=== PATIENT | female | born 1975 | race Caucasian/White ===

== ENCOUNTER 2018-04-21 17:24 | Emergency (ER) | payer OTHER ==
[2018-04-21 18:31] VITALS: BP 111/57
[2018-04-21] MEDS ORDERED: OXYCODONE-ACETAMINOPHEN 5-325 MG TABLET PO ONE (18:46)
--- NOTE | 2018-04-21 19:14 | RADIOLOGY REPORT (SQ) ---
EXAM DESCRIPTION: ELBOW RIGHT OVER 2 VIEWS COMPLETED DATE/TIME: 04/21/2018 7:03 pm REASON FOR STUDY: fall, pain COMPARISON: None. NUMBER OF VIEWS: Four views. TECHNIQUE: AP, lateral, and both oblique radiographic images acquired of the right elbow. LIMITATIONS: None. FINDINGS: MINERALIZATION: Normal. BONES: There is a comminuted fracture of the radial head and neck. JOINT: No effusion. SOFT TISSUES: No soft tissue swelling. No foreign body. OTHER: No other significant finding. IMPRESSION: Fracture of the radial head and neck. TECHNICAL DOCUMENTATION: JOB ID: [id number] [employer]- All Rights Reserved Reading location - IP/workstation name: [email or web address]
--- NOTE | 2018-04-21 19:28 | ER Document Report ---
HPI - HPI Patient complains to provider of: Right arm pain Pain Level: 5 Context: Patient is a 42-year-old healthy female complaining of pain to her right arm 1 day. 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 Patient felt and heard a pop near her elbow. Acute pain. Patient fell on her left knee which has an abrasion. Patient denies hitting her head. No neck or back pain. Associated Symptoms: None Exacerbated by: Movement Relieved by: Denies Similar symptoms previously: No Recently seen / treated by doctor: No - ROS Systems Reviewed and Negative: Yes All other systems reviewed and negative - REPRODUCTIVE LMP: 03/26/18 - MUSCULOSKELETAL Musculoskeletal: REPORTS: Extremity pain Past Medical History - General Information source: Patient - Social History Smoking Status: Current Every Day Smoker Frequency of alcohol use: Occasional Drug Abuse: None Lives with: Family Family History: Reviewed & Not Pertinent Patient has suicidal ideation: No Patient has homicidal ideation: No Renal/ Medical History: Denies: Hx Peritoneal Dialysis Vertical Provider Document - CONSTITUTIONAL Agree With Documented VS: Yes Exam Limitations: No Limitations - INFECTION CONTROL TRAVEL OUTSIDE OF THE [place] IN LAST 30 DAYS: No - HEENT HEENT: Atraumatic, PERRLA - NECK Neck: Normal Inspection, Supple - RESPIRATORY Respiratory: Breath Sounds Normal, No Respiratory Distress - BACK Back: Normal Inspection - MUSCULOSKELETAL/EXTREMETIES Musculoskeletal/Extremeties: Tender - Focal tenderness to proximal radial styloid. Patient unable to fully extend right elbow. Distal sensory motor circulation intact - NEURO Level of Consciousness: Awake, Alert, Appropriate - DERM Integumentary: Warm, Dry, Rash - Positive abrasion to left knee Course - Re-evaluation Re-evalutation: 04/21/18 19:26 X-ray showing positive fracture of right radial styloid. These results reviewed with the patient. LOW risk for OPEN FRACTURE, COMPARTMENT SYNDROME, DEEP VENOUS THROMBOSIS, ACUTE TENDON RUPTURE, or NEUROVASCULAR INJURY thus I consider the discharge disposition reasonable. I have reevaluated this patient multiple times and no significant life threatening changes are noted. The patient and I have discussed the diagnosis and risks, and we agree with discharging home to closely follow-up with their primary doctor or the referral orthopedist with the understanding that symptoms and presentations can change. We also discussed returning to the Emergency Department immediately if new or worsening symptoms occur. We have discussed the symptoms which are most concerning (e.g., changing or worsening pain, numbness, weakness) that necessitate immediate return - Vital Signs Vital signs: Temp Pulse Resp BP Pulse Ox 98.3 F 87 16 111/57 L 97 04/21/18 17:38 04/21/18 17:38 04/21/18 17:38 04/21/18 18:29 04/21/18 17:38 Discharge - Discharge Clinical Impression: Radial head fracture Qualifiers: Encounter type: initial encounter Fracture type: closed Fracture alignment: displaced Laterality: right Qualified Code(s): S52.121A - Displaced fracture of head of right radius, initial encounter for closed fracture Condition: Stable Disposition: HOME, SELF-CARE Instructions: Fracture ([facility]), Splint Pending Casting ([facility]), Sling to be Used ( [facility]), Oral Narcotic Medication ([facility]), Ice & Elevation ([facility]) Additional Instructions: We have a fracture of your radial styloid. You have been splinted for comfort and protection. Please follow-up with orthopedist tomorrow for further evaluation and treatment Contact information is provided below: [facility] ([facility]) Address: [address] [place] [address], [place] [address] Prescriptions: Oxycodone HCl/Acetaminophen [Percocet 5-325 mg Tablet] 1 - 2 tab PO ASDIR PRN # 25 tablet PRN Reason: Referrals: JORDAN ESTRADA MD [ACTIVE STAFF] - Follow up as needed
== END 2018-04-21 19:38 | disposition home or self-care (01) ==
LOC: ER 17:24
DX: S52.121A Displaced fracture of head of right radius, initial encounter for closed fracture (principal); S80.212A Abrasion, left knee, initial encounter; M79.601 Pain in right arm; W19.XXXA Unspecified fall, initial encounter; F17.200 Nicotine dependence, unspecified, uncomplicated
CPT/HCPCS: 99283

== ENCOUNTER 2018-04-30 10:07 | Day surgery (SDC) | payer OTHER ==
[2018-04-27 11:28] LABS: ABSOLUTE EOSINOPHILS # (AUTO) 0.1 10^3/uL (0.0-0.6); ABSOLUTE LYMPHOCYTES (AUTO) 2.1 10^3/uL (0.5-4.7); ABSOLUTE MONOCYTES (AUTO) 0.6 10^3/uL (0.1-1.4); ABSOLUTE NEUT (AUTO) 6.9 10^3/uL (1.7-8.2); BASOPHILS % (AUTO) 0.3 % (0-2); EOSINOPHILS % (AUTO) 0.7 % (0-6); LYMPHOCYTES % (AUTO) 21.4 % (13-45); MEAN CORPUSCULAR HEMOGLOBIN 33.6 pg (27.0-33.4); MEAN CORPUSCULAR HGB CONC 34.9 g/dL (32.0-36.0); MEAN CORPUSCULAR VOLUME 96 fl (80-97); MONOCYTES % (AUTO) 6.3 % (3-13); PLATELET COUNT 247 10^3/uL (150-450); RED BLOOD COUNT 4.78 10^6/uL (3.72-5.28); RED CELL DISTRIBUTION WIDTH 12.4 % (11.5-14.0); SEGMENTED NEUTROPHILS % (AUTO) 71.3 % (42-78); TOTAL CELLS COUNTED % (AUTO) 100 %; WHITE BLOOD COUNT 9.7 10^3/uL (4.0-10.5)
[2018-04-27 11:41] LABS: APPEARANCE,URINE TURBID; BILIRUBIN,URINE NEGATIVE (NEGATIVE); COLOR,URINE DARK YELLOW; GLUCOSE, URINE NEGATIVE (NEGATIVE); KETONES,URINE NEGATIVE (NEGATIVE); LEUKOCYTE ESTERASE,URINE MODERATE (NEGATIVE); NITRITE,URINE NEGATIVE (NEGATIVE); PROTEIN,URINE 30 mg/dL (NEGATIVE); URINE SPECIFIC GRAVITY 1.021
[2018-04-27 11:44] LABS: ANION GAP 9 (5-19); BLOOD UREA NITROGEN 15 mg/dL (7-20); CALCIUM 9.1 mg/dL (8.4-10.2); CARBON DIOXIDE 28 mmol/L (22-30); CHLORIDE 107 mmol/L (98-107); GLUCOSE 89 mg/dL (75-110); POTASSIUM 4.5 mmol/L (3.6-5.0); SODIUM 144.2 mmol/L (137-145)
--- NOTE | 2018-04-27 13:26 | EKG REPORT ---
SEVERITY:- NORMAL ECG - SINUS RHYTHM : Confirmed by: Dain Jeffries MD 27-Apr-2018 13:25:51
[~2018-04-30 10:07] MED LIST: BUPIVACAINE HCL 0.5 % INJ/PF 30 ML SDV ONE; CLINDAMYCIN 600 MG/D5W RTU 600 MG/50 ML RTUPB IV PRN; LACTATED RINGERS 1000 ML IV PRN; LIDOCAINE 0.5% INJ-PF (5 MG/ML) 50 ML SDV SUBCUT PRN
[2018-04-30] MEDS ORDERED: FAMOTIDINE INJ/PF 20 MG/2 ML SDV IV ONE (11:10)
[2018-04-30] MEDS ORDERED: MIDAZOLAM 2 MG/2 ML INJ ONE ×2 (11:10→11:44)
[2018-04-30] MEDS ORDERED: ALBUTEROL SULFATE 0.083% NEB 2.5 MG/3 ML AMPUL NEB ONE (11:22)
[2018-04-30] MEDS ORDERED: ACETAMINOPHEN 1,000 MG/100 ML RTUPB IV ONE (11:44)
[2018-04-30] MEDS ORDERED: PROPOFOL INJ 200 MG/20 ML VIAL IV ONE (11:44)
[2018-04-30] MEDS ORDERED: FENTANYL CITRATE INJ/PF 250 MCG/5 ML AMPULE ONE (11:44)
[2018-04-30] MEDS ORDERED: HYDROMORPHONE HCL INJ/PF 2 MG/ML AMPULE ONE (11:44)
[2018-04-30] MEDS ORDERED: OXYCODONE-ACETAMINOPHEN 5-325 MG TABLET PO PRN ×3 (13:29→14:44)
[2018-04-30] MEDS ORDERED: MORPHINE SULFATE 10 MG/ML INJ IV PRN (13:29)
[2018-04-30] MEDS ORDERED: PROMETHAZINE HCL INJ 25 MG/1 ML VIAL IV PRN ×2 (13:29)
[2018-04-30] MEDS ORDERED: FENTANYL CITRATE INJ/PF 100 MCG/2 ML AMPUL IV PRN ×3 (13:29)
[2018-04-30] MEDS ORDERED: MEPERIDINE HCL/PF INJ 25 MG/1 ML DISP.SYRIN IV PRN (13:29)
[2018-04-30] MEDS ORDERED: DIPHENHYDRAMINE HCL 50 MG/ML VIAL IV PRN (13:29)
[2018-04-30] MEDS ORDERED: FENTANYL CITRATE INJ/PF 100 MCG/2 ML AMPUL ONE (14:36)
[2018-04-30] MEDS ORDERED: HYDROMORPHONE HCL INJ/PF 2 MG/ML AMPULE IV PRN (14:44)
--- NOTE | 2018-04-30 14:44 | Discharge Summary ---
Discharge Summary (SDC) - Discharge Final Diagnosis: Right comminuted radial head fracture, lateral ulnar collateral ligament tear Date of Surgery: 04/30/18 Discharge Date: 04/30/18 Condition: Good Treatment or Instructions: Schedule Follow Up w/ Dr. Ghassan Mac @ [facility] for Surgery to be seen in 10-14 days or as scheduled [place]: [place]: [place]: Ice and elevate Keep splint clean/dry/intact. If your fingers become numb please unwrap the Shane wrap but leave the splint in place, if the sensation does not return within 30 minutes please return to the emergency department. May begin finger range of motion attempting to make full fist. Please use ibuprofen (Motrin or Advil) 600-800 mg every 8 hours as needed for pain or fever DO NOT TAKE w/ TORADOL may use once TORADOL complete. You may also use acetaminophen (Tylenol) 1000 mg every 4-6 hours as needed for pain or fever. Please be aware that many medications contain acetaminophen, do not exceed a total of 1000 mg of acetaminophen every 6 hours. If ibuprofen and acetaminophen are not sufficient for your pain you may take the Percocet/[place]. Please be aware that the Percocet/[place] does contain Tylenol. Stool softener of choice when on pain medication. Prescriptions: Ketorolac Tromethamine [Toradol 10 mg Tablet] 10 mg PO Q8HP PRN #12 tablet PRN Reason: Oxycodone HCl/Acetaminophen [Percocet 5-325 mg Tablet] 1 - 2 tab PO ASDIR PRN # 35 tablet PRN Reason: Discharge Diet: As Tolerated Respiratory Treatments at Home: Deep Breathing/Coughing, Incentive Spirometer Discharge Activity: No Lifting Over 10 Pounds, No Lifting/Push/Pulling Report the Following to Your Physician Immediately: Fever over 101 Degrees, Unusual Bleeding, Redness, Swelling, Warmth, Increased Soreness
[2018-04-30] MEDS ORDERED: ONDANSETRON 4 MG TAB.RAPDIS ONE (14:46)
[2018-04-30] MEDS ORDERED: LIDOCAINE 2%/EPINEPHRINE INJ 20 ML VIAL ONE (14:47)
[2018-04-30] MEDS ORDERED: LIDOCAINE 2% INJ (20 MG/ML) 20 ML MDV ONE (14:48)
[2018-04-30] MEDS ORDERED: ROPIVACAINE HCL 0.5% INJ/PF (5 MG/1 ML) 30 ML SDV ONE ×2 (14:48→14:55)
--- NOTE | 2018-04-30 16:35 | RADIOLOGY REPORT (SQ) ---
EXAM DESCRIPTION: NO CHG FLUORO; ELBOW RIGHT AP/LAT COMPLETED DATE/TIME: 04/30/2018 3:31 pm REASON FOR STUDY: ORIF RIGHT RADIAL HEAD ARTHROPLASTY COMPARISON: None. FLUOROSCOPY TIME: 0.6 minutes 4 Images saved to PACS LIMITATIONS: None. PROCEDURE: Arthroplasty of the right radial head. FINDINGS: Arthroplasty of the right radial head. IMPRESSION: Arthroplasty of the right radial head. Refer to operative note for further information. COMMENT: PQRS 6045F: Fluoroscopy time of the procedure is documented in the report. TECHNICAL DOCUMENTATION: JOB ID: [id number] [employer]- All Rights Reserved Reading location - IP/workstation name: [email or web address]
--- NOTE | 2018-04-30 16:35 | RADIOLOGY REPORT (SQ) ---
EXAM DESCRIPTION: NO CHG FLUORO; ELBOW RIGHT AP/LAT COMPLETED DATE/TIME: 04/30/2018 3:31 pm REASON FOR STUDY: ORIF RIGHT RADIAL HEAD ARTHROPLASTY COMPARISON: None. FLUOROSCOPY TIME: 0.6 minutes 4 Images saved to PACS LIMITATIONS: None. PROCEDURE: Arthroplasty of the right radial head. FINDINGS: Arthroplasty of the right radial head. IMPRESSION: Arthroplasty of the right radial head. Refer to operative note for further information. COMMENT: PQRS 6045F: Fluoroscopy time of the procedure is documented in the report. TECHNICAL DOCUMENTATION: JOB ID: [id number] [employer]- All Rights Reserved Reading location - IP/workstation name: [email or web address]
[2018-04-30] MEDS ORDERED: SUCCINYLCHOLINE CHLORIDE INJ 200 MG/10 ML VIAL ONE (16:47)
[2018-04-30 16:58] VITALS: BP 115/58
--- NOTE | 2018-04-30 18:14 | Operative Report ---
Operative Report DATE OF SURGERY: 04/30/18 PREOPERATIVE DIAGNOSIS: Right comminuted intra-articular radial head fracture POSTOPERATIVE DIAGNOSIS: Above plus lateral ulnar collateral ligament tear OPERATION: 1. Radial head arthroplasty right elbow. 2. Lateral ulnar collateral ligament repair right elbow SURGEON: JORDAN ONEIL ANESTHESIA: GA COMPLICATIONS: None ESTIMATED BLOOD LOSS: Minimal PROCEDURE: Indication for above procedure: 42-year-old female who sustained a fall to her right elbow resulting in a injury. She was seen at the emergency room where x-rays demonstrate comminuted radial head fracture. At that point she was sent to ri for further evaluation and treatment. We discussed treatment options including operative versus nonoperative intervention along with risks and benefits. At that point decision was made to proceed with operative treatment. Procedure In Detail: Patient was seen and evaluated in the preoperative holding area. The RIGHT upper extremity was initialized and marked. Patient received 600 mg of clindamycin IV for bacterial prophylaxis. Patient was taken back to the operative room where transferred to the operative table and placed under general anesthesia. A surgical team debriefing was performed ensuring all instrumentation was available, the surgical procedure was discussed with possible concerns reviewed. The upper extremity was prepped with ChloraPrep and draped in a sterile fashion. A nonsterile tourniquet was placed around the right upper extremity. A timeout was done identifying correct patient, procedure and extremity everyone in attendance agree with this and verbalized no concerns. The extremity was exsanguinated the tourniquet was inflated to 250 mmHg. Oblique skin incision was made from the lateral epicondyle to 5 cm distal to the olecranon tip. Kochers interval was identified and split. Blunt dissection was performed through the extensor mechanism which was split in line with the skin incision. Disruption of the lateral ulnar collateral ligament was identified exposing the radiocapitellar joint. There is significant comminution of the radial head at that point decision was made to proceed with radial head arthroplasty. Fragments of the radial head removed including any remaining loose bodies. The wound was copiously irrigated with normal saline. Identification of the coronoid through this defect demonstrated partial disruption of the anterior capsule with intact coronoid. The supinator was carefully elevated along the neck of the radius while maintaining full pronation of the forearm to protect the posterior interosseous nerve. Once this was isolated sagittal saw was used to freshen up the distal aspect. I then proceeded with trialing for the Acumed radial head implant and reamed to a size 9 mm. A size 9 mm 0 was first child which did not provide adequate stability or height. I then trialed subsequently 2, 4 and 6 mm neck length I felt the 6 mm neck length overstuff the radiocapitellar joint. Thus the 4 mm was once again trialed a to provide stability of the radiocapitellar joint under direct visualization it was approximately 1 mm proximal to the proximal radial ulnar joint. Thus the size 9 x 4 mm radial head arthroplasty was chosen. The wound was then copiously irrigated with normal saline. On the back table the arthroplasty was inset. I then implanted arthroplasty maintaining neutral position during implantation. Good fit was obtained. Patient had full pronation supination without impingement. There is no evidence of instability from full flexion to full extension. C-arm fluoroscopy was obtained confirming adequate alignment without evidence of increased tight in comparison to the proximal radial ulnar joint. I then proceeded with lateral ulnar collateral ligament repair. A Arthrex 3 x 14.5 mm suture tack anchor was placed at the isometric point of the capitellum which was confirmed with C arm fluoroscopy. A running locking Krakw suture was proceeded from proximal to distal and distal to proximal and secured with the elbow in 90 of flexion and full pronation. I then repaired the extensor mechanism back to the lateral epicondyle once again with a running Krakw suture. This was then reinforced with interrupted #2 FiberWire suture. C-arm fluoroscopy was once again obtained demonstrating stability of the radiocapitellar joint no evidence of ulnohumeral subluxation or dislocation. The tourniquet was then deflated. Any bleeding was controlled with bipolar cautery into the wound was dry. Subcutaneous tissues were closed with interrupted 3-0 Vicryl suture. Skin was closed with a running subcuticular 4-0 Monocryl reinforced with Dermabond and Steri-Strips. 20 cc of 0.5% Marcaine without epinephrine was injected for postoperative pain control. Patient was placed in a posterior splint maintaining 90 of elbow flexion and 40 of pronation. Sponge counts, instrument counts, needle counts counts were correct. Patient was then awoken from anesthesia. Transferred from the operating room table to the operating room stretcher. There was no intraoperative complications patient tolerated procedure well stable to PACU. Postoperative plan: Patient will begin occupational therapy 3 weeks postoperatively beginning elbow range of motion as per lateral ulnar collateral ligament protocol with goal of achieving full range of motion by 6 weeks postoperatively. Patient will be fitted for a hinged elbow brace at postoperative follow-up. Will obtain radiographs of the right elbow at follow-up.
== END 2018-04-30 17:00 | disposition home or self-care (01) ==
LOC: OROUT 10:07
PROVIDERS: ATTEND Orthopaedic Surgery
PROC: 0RRL0JZ Replacement of Right Elbow Joint with Synthetic Substitute, Open Approach (ICD-10-PCS; 2018-04-30)
PROC: 0MQ30ZZ Repair Right Elbow Bursa and Ligament, Open Approach (ICD-10-PCS; principal; 2018-04-30 12:00)
DX: S52.121A Displaced fracture of head of right radius, initial encounter for closed fracture (principal); S53.441A Ulnar collateral ligament sprain of right elbow, initial encounter; F17.200 Nicotine dependence, unspecified, uncomplicated
CPT/HCPCS: 93005; 36415; 85025; 81025; 80048; 81001; 73070; 93010; 94640; 24343; 24366; J2795; J2250; J3490 ×3; S0119; J3010 ×2; J1170; J0330; J2704; S0028; J0131; 01740; C1713

== ENCOUNTER 2018-05-01 03:18 | Emergency (ER) | payer OTHER ==
[2018-05-01] MEDS ORDERED: HYDROMORPHONE HCL INJ/PF 2 MG/ML AMPULE IM ONE ×3 (04:29→06:00)
--- NOTE | 2018-05-01 04:34 | ER Document Report ---
ED Extremity Problem, Upper - General Chief Complaint: Arm Pain Stated Complaint: ELBOW PAIN Time Seen by Provider: 05/01/18 04:22 Mode of Arrival: Ambulatory Information source: Patient Notes: Patient is a 42-year-old female who presents with chief complaint of right elbow pain status post radial head replacement done yesterday 04/30/18. Patient reports that she has been taking Percocet 2 tablets p.o. every 4 hours as well as Toradol 10 mg p.o. every 8 hours, patient reports that the pain started getting out of control around midnight. Patient reports that she called her orthopedic group and spoke with Dr. Bell who advised that patient present to the emergency department if she could not get her pain under control. Patient further reports that they did a nerve block however she reports that this wore off at about 1130 last night. TRAVEL OUTSIDE OF THE U.S. IN LAST 30 DAYS: No - Related Data Allergies/Adverse Reactions: cephalexin [From Keflex] Allergy (Verified 04/27/18 13:55) latex Allergy (Verified 04/27/18 13:55) Past Medical History - General Information source: Patient - Social History Smoking Status: Never Smoker Frequency of alcohol use: None Drug Abuse: None Family History: Reviewed & Not Pertinent - Medical History Medical History: Negative - Past Medical History Cardiac Medical History: Denies: Hx Coronary Artery Disease, Hx Heart Attack, Hx Hypertension Pulmonary Medical History: Denies: Hx Asthma, Hx Bronchitis, Hx COPD, Hx Pneumonia Neurological Medical History: Denies: Hx Cerebrovascular Accident, Hx Seizures Renal/ Medical History: Denies: Hx Peritoneal Dialysis Musculoskeltal Medical History: Denies Hx Arthritis Past Surgical History: Reports: Hx Orthopedic Surgery - Right elbow - Immunizations Hx Diphtheria, Pertussis, Tetanus Vaccination: Yes Review of Systems - Review of Systems Constitutional: No symptoms reported EENT: No symptoms reported Cardiovascular: No symptoms reported Respiratory: No symptoms reported Gastrointestinal: No symptoms reported Genitourinary: No symptoms reported Female Genitourinary: No symptoms reported Musculoskeletal: See HPI Skin: No symptoms reported Hematologic/Lymphatic: No symptoms reported Neurological/Psychological: No symptoms reported Physical Exam - Vital signs Vitals: Temp Pulse Resp BP Pulse Ox 98.2 F 74 16 116/69 98 05/01/18 07:21 05/01/18 07:21 05/01/18 07:21 05/01/18 07:21 05/01/18 07:21 - Notes Notes: PHYSICAL EXAMINATION: GENERAL: Well-appearing, well-nourished and in no acute distress. HEAD: Atraumatic, normocephalic. EYES: Pupils equal round and reactive to light, extraocular movements intact, conjunctiva are normal. ENT: Nares patent, oropharynx clear without exudates. Moist mucous membranes. NECK: Normal range of motion, supple without lymphadenopathy LUNGS: Breath sounds clear to auscultation bilaterally and equal. No wheezes rales or rhonchi. HEART: Regular rate and rhythm without murmurs ABDOMEN: Soft, nontender, nondistended abdomen. No guarding, no rebound. No masses appreciated. Female : deferred Musculoskeletal: Normal range of motion, no pitting or edema. No cyanosis. Sahne wraps and large bulky dressing in place to right arm. Patient does have cap refill less than 3 seconds and positive motor and sensation distal to elbow. NEUROLOGICAL: Cranial nerves grossly intact. Normal speech, normal gait. Normal sensory, motor exams PSYCH: Normal mood, normal affect. SKIN: Warm, Dry, normal turgor, no rashes or lesions noted. Course - Re-evaluation Re-evalutation: 42-year-old female presents with postsurgical pain after having a right elbow replacement done yesterday here at [facility]. Patient denies any new trauma to the area, patient reports she has been wearing her sling as directed until the nerve block wore off. Patient reports she has been taking her pain medications as directed however patient reports that the pain is severe and unable to be controlled. X-ray will be performed to check alignment of new prosthetic elbow in comparison with fluoroscopy images from surgery. Patient will be given Dilaudid intramuscularly to try to achieve more adequate pain control. Patient is agreeable to this plan. 05/01/18 06:00 right elbow x-ray is unremarkable for any acute changes. Patient reports a very minimal relief of pain after the Dilaudid IM injection. Called and spoke with orthopedic on-call, Dr. Bell who advises that he will come in and see the patient. Assisted patient into a position of comfort, ordered an additional Dilaudid [address] Bell. Ice packs placed around splint near surgical site. After Dr. Bell's evaluation, splint was removed by Dr. Bell. Patient did experience fairly immediate pain relief. Spoke with Dr. Bell short while after the splint was removed, patient still reports relief of her pain. Patient will be discharged home in stable condition with plans to follow-up with Dr. Oneil in the office this week. - Vital Signs Vital signs: Temp Pulse Resp BP Pulse Ox 98.2 F 74 16 116/69 98 05/01/18 07:21 05/01/18 07:21 05/01/18 07:21 05/01/18 07:21 05/01/18 07:21 Discharge - Discharge Clinical Impression: Post-op pain, Right arm pain Condition: Stable Disposition: HOME, SELF-CARE Additional Instructions: Please take all medications as prescribed by your surgeon. Please keep your follow-up appointment that you have scheduled with Dr. borges for next week. Please return to the emergency department if you develop any acute complaints. Referrals: JORDAN ONEIL, [ACTIVE STAFF] - Follow up as needed
--- NOTE | 2018-05-01 05:39 | RADIOLOGY REPORT (SQ) ---
EXAM DESCRIPTION: XR ELBOW 3 VIEWS COMPLETED DATE/TME: 05/01/2018 04:24 CLINICAL HISTORY: 42 years, Female, pain s/p surgery 04/30/18 COMPARISON: None. NUMBER OF VIEWS: 4 LIMITATIONS: None. FINDINGS: Arthroplasty of the right radial head without evidence of metal fracture or loosening. Small right elbow effusion. Moderate soft tissue swelling and emphysema of the posterior soft tissues. Splint. IMPRESSION: Soft tissue swelling/emphysema. Small right elbow joint effusion. Right radial head arthroplasty.
[2018-05-01] MEDS ORDERED: HYDROMORPHONE HCL INJ/PF 2 MG/ML AMPULE IV ONE (06:00)
[2018-05-01 07:21] VITALS: BP 116/69
== END 2018-05-01 07:25 | disposition home or self-care (01) ==
LOC: ER 03:18
DX: M79.621 Pain in right upper arm (principal); G89.18 Other acute postprocedural pain
CPT/HCPCS: 99283; 96372; 73080; J1170

== ENCOUNTER → 2018-08-24 | Outpatient (CLI) | payer OTHER ==
[2018-08-24 11:34] LABS: ABSOLUTE BASOPHILS # (AUTO) 0.1 10^3/uL (0.0-0.2); ABSOLUTE EOSINOPHILS # (AUTO) 0.1 10^3/uL (0.0-0.6); ABSOLUTE MONOCYTES (AUTO) 0.6 10^3/uL (0.1-1.4); ABSOLUTE NEUT (AUTO) 6.8 10^3/uL (1.7-8.2); BASOPHILS % (AUTO) 0.5 % (0-2); EOSINOPHILS % (AUTO) 0.9 % (0-6); HEMATOCRIT 44.7 % (36.0-47.0); HEMOGLOBIN 15.4 g/dL (12.0-15.5); LYMPHOCYTES % (AUTO) 28.5 % (13-45); MEAN CORPUSCULAR HEMOGLOBIN 33.2 pg (27.0-33.4); MEAN CORPUSCULAR HGB CONC 34.4 g/dL (32.0-36.0); MEAN CORPUSCULAR VOLUME 97 fl (80-97); MONOCYTES % (AUTO) 5.5 % (3-13); PLATELET COUNT 242 10^3/uL (150-450); RED BLOOD COUNT 4.64 10^6/uL (3.72-5.28); RED CELL DISTRIBUTION WIDTH 12.8 % (11.5-14.0); SEGMENTED NEUTROPHILS % (AUTO) 64.6 % (42-78); TOTAL CELLS COUNTED % (AUTO) 100 %; WHITE BLOOD COUNT 10.5 10^3/uL (4.0-10.5)
--- NOTE | 2018-08-24 11:38 | RADIOLOGY REPORT (SQ) ---
EXAM DESCRIPTION: CHEST PA/LATERAL COMPLETED DATE/TIME: 08/24/2018 10:50 am REASON FOR STUDY: PRE-OP COMPARISON: None. EXAM PARAMETERS: NUMBER OF VIEWS: two views TECHNIQUE: Digital Frontal and Lateral radiographic views of the chest acquired. RADIATION DOSE: NA LIMITATIONS: none FINDINGS: LUNGS AND PLEURA: No opacities, masses or pneumothorax. No pleural effusion. MEDIASTINUM AND HILAR STRUCTURES: No masses or contour abnormalities. HEART AND VASCULAR STRUCTURES: Heart normal size. No evidence for failure. BONES: No acute findings. HARDWARE: None in the chest. OTHER: No other significant finding. IMPRESSION: NO SIGNIFICANT RADIOGRAPHIC FINDING IN THE CHEST. TECHNICAL DOCUMENTATION: JOB ID: [id number] [employer]- All Rights Reserved Reading location - IP/workstation name: [email or web address]
[2018-08-24 12:04] LABS: ANION GAP 9 (5-19); BLOOD UREA NITROGEN 15 mg/dL (7-20); CALCIUM 9.4 mg/dL (8.4-10.2); CARBON DIOXIDE 29 mmol/L (22-30); CHLORIDE 105 mmol/L (98-107); GLUCOSE 86 mg/dL (75-110); POTASSIUM 4.5 mmol/L (3.6-5.0)
--- NOTE | 2018-08-25 08:24 | EKG REPORT ---
SEVERITY:- NORMAL ECG - SINUS RHYTHM : Confirmed by: Unique Mishra MD 25-Aug-2018 08:23:28
== END ==
LOC: OD 10:18
PROVIDERS: ATTEND Orthopaedic Surgery
DX: Z01.818 Encounter for other preprocedural examination (principal)
CPT/HCPCS: 36415; 71046; 80048; 85025; 93005; 93010

== ENCOUNTER → 2019-04-01 | Day surgery (SDC) | payer OTHER ==
--- NOTE | 2019-04-01 14:16 | RADIOLOGY REPORT (SQ) ---
EXAM DESCRIPTION: CT RT UPPER EXTREMITY WITH COMPLETED DATE/TIME: 04/01/2019 1:43 pm REASON FOR STUDY: S53.441S ULNAR COLLATERAL LIGAMENT SPRAIN OF RIGHT ELBOW, SEQUELA S53.441S ULNAR COLLATERAL LIGAMENT SPRAIN OF RIGHT ELBOW, SE COMPARISON: None. TECHNIQUE: CT scan of the right elbow performed with intra-articular contrast. Images reviewed with soft tissue and bone windows. Reconstructed coronal and sagittal MPR images reviewed. All images s tored on PACS. All CT scanners at this facility use dose modulation, iterative reconstruction, and/or weight based d osing when appropriate to reduce radiation dose to as low as reasonably achievable (ALARA). [facility]: Dose Right [facility]: CareDose [facility]: Dose Right [facility]: Teradose 4D [facility]: [employer] RADIATION DOSE: CT Rad equipment meets quality standard of care and radiation dose reduction techniq ues were employed. CTDIvol: 4.6 mGy. DLP: 97 mGy-cm. mGy. LIMITATIONS: Artifact from a radial head prosthesis. FINDINGS: Intact radial head prosthesis. No fracture or dislocation. Articular surfaces are normal . IMPRESSION: Intact radial head prosthesis. No evidence of loosening or infection. TECHNICAL DOCUMENTATION: JOB ID: [id number] Quality ID # [id number]: Final reports with documentation of one or more dose reduction techniques (e.g., Au tomated exposure control, adjustment of the mA and/or kV according to patient size, use of iterative reconstruction technique) 2010 [employer]- All Rights Reserved Reading location - IP/workstation name: [email or web address]
--- NOTE | 2019-04-01 14:24 | RADIOLOGY REPORT (SQ) ---
EXAM DESCRIPTION: ARTHRO ELBOW INJECTION; FLUORO/NEEDLE PLACEMENT COMPLETED DATE/TIME: 04/01/2019 1:44 pm REASON FOR STUDY: S53.441S ULNAR COLLATERAL LIGAMENT SPRAIN OF RIGHT ELBOW, SEQUELA S53.441S ULNAR COLLATERAL LIGAMENT SPRAIN OF RIGHT ELBOW, SE COMPARISON: None. FLUOROSCOPY TIME: 1.1 minute. 2 images saved to PACS. LIMITATIONS: None. PROCEDURE: Procedure, risks, benefits and alternatives explained to patient who then gave written co nsent. The right elbow was marked and a time-out was called for correct marking verification. Entry site marked using fluoroscopic guidance. Elbow prepped and draped using sterile technique. Local a nesthesia achieved using 1% lidocaine injection. Hypodermic needle introduced into the joint space u nder direct fluoroscopic visualization. Non-ionic contrast instilled to confirm intra-articular posi tion. Additional dilute non-ionic contrast instilled. Needle removed and entry site covered with st erile bandage. No immediate complications noted. TECHNIQUE: Digital images acquired during fluoroscopy and stored on PACS. Patient immediately take n to the CT suite for additional imaging. INJECTION LOCATION: Right elbow CONTRAST TYPE AND AMOUNT: 0.5 mL Omnipaque and 4 mL dilute Omnipaque/saline mixture IMPRESSION: SUCCESSFUL NEEDLE PLACEMENT AND INJECTION FOR RIGHT ELBOW CT ARTHROGRAM. COMMENT: Quality ID [id number]: Final reports for procedures using fluoroscopy that document radiation exp osure indices, or exposure time and number of fluorographic images (if radiation exposure indices are not available) TECHNICAL DOCUMENTATION: JOB ID: [id number] [employer]- All Rights Reserved Reading location - IP/workstation name: [email or web address]
== END ==
LOC: RAD 12:34 → EDSTATUS 13:00
PROVIDERS: ATTEND Orthopaedic Surgery
DX: S53.441S Ulnar collateral ligament sprain of right elbow, sequela (principal); X58.XXXS Exposure to other specified factors, sequela
CPT/HCPCS: 24220; 77002

== ENCOUNTER 2020-02-12 11:32 | Emergency (ER) | payer BC, OTHER ==
[2020-02-12] MEDS ORDERED: ONDANSETRON HCL INJ/PF 4 MG/2 ML SDV IV ONE ×2 (12:05→14:39)
[2020-02-12] MEDS ORDERED: MORPHINE SULFATE 10 MG/ML INJ IV ONE ×2 (12:05→14:25)
[2020-02-12] MEDS ORDERED: NORMAL SALINE 1000 ML 1,000 ML IV ONE (12:05)
--- NOTE | 2020-02-12 12:06 | ER Document Report ---
ED GI/ - General Stated Complaint: ABDOMINAL PAIN Time Seen by Provider: 02/12/20 11:44 Primary Care Provider: JORDAN ONEIL DO [ACTIVE STAFF] - Follow up as needed Notes: CHIEF COMPLAINT: 1 week of progressively worsening right lower quadrant pain HPI: 44-year-old female presenting to the emergency department complaining of 1 week of progressively worsening right lower quadrant pain over the last week. Patient states it started as minor twinges in the right lower quadrant but has progressed into the right lateral flank abdomen right upper quadrant. She is had nausea no vomiting no fever. No specific dysuria or hematuria. Patient does report a history of kidney stones in the past but states this feels different. Patient states it hurts to walk or bend at the waist. No history of diverticular disease. No history of ovarian cysts. Patient has no history of significant abdominal surgeries. States she has has her tubes tied but is 2 weeks late on her menstrual cycle. ROS: See HPI - all other systems were reviewed and are otherwise negative Constitutional: no fever Eyes: no drainage, no blurred vision ENT: no runny nose, no sore throat Cardiovascular: no chest pain Resp: no SOB, no cough GI: no vomiting, no diarrhea, + abdominal pain, positive nausea : no dysuria Integumentary: no rash Allergy: no hives Musculoskeletal: no extremity pain or swelling Neurological: no numbness/tingling, no weakness MEDICATIONS: I agree with the patient medications as charted by the RN. ALLERGIES: I agree with the allergies as charted by the RN. PAST MEDICAL HISTORY/PAST SURGICAL HISTORY: Reviewed and agree as charted by RN. SOCIAL HISTORY: Reviewed and agree as charted by RN. FAMILY HISTORY: No significant familial comorbid conditions directly related to patient complaint EXAM: Reviewed vital signs as charted by RN. CONSTITUTIONAL: Alert and oriented and responds appropriately to questions. Well-appearing; well-nourished, moderately uncomfortable HEAD: Normocephalic; atraumatic EYES: PERRL; Conjunctivae clear, sclerae non-icteric ENT: normal nose; no rhinorrhea; moist mucous membranes; pharynx without lesions noted, no uvula edema or deviation, no tonsillar hypertrophy, phonation normal NECK: Supple without meningismus; non-tender; no cervical lymphadenopathy, no masses CARD: RRR; no murmurs, no clicks, no rubs, no gallops; symmetric distal pulses RESP: Normal chest excursion without splinting or tachypnea; breath sounds clear and equal bilaterally; no wheezes, no rhonchi, no rales, pulse oximetry 98% on room air not hypoxic ABD/GI: Normal bowel sounds; non-distended; soft, moderate tenderness in the right lower quadrant with guarding and rebound. Mild tenderness through the right upper quadrant right lateral flank and low in the right pelvis as well; no palpable organomegaly or masses. BACK: The back appears normal and is non-tender to palpation, there is no CVA tenderness EXT: Normal ROM in all joints; non-tender to palpation; no cyanosis, no effusions, no edema SKIN: Normal color for age and race; warm; dry; good turgor; no acute lesions noted NEURO: Moves all extremities equally; Motor and sensory function intact PSYCH: The patient's mood and manner are appropriate. Grooming and personal hygiene are appropriate. MDM: 44-year-old female with progressive right lower quadrant pain worse with movement now. Differential is large would include diverticulitis, appendicitis, ovarian cyst or torsion, obstructing kidney stone. Will obtain basic screening labs and urine. She is 2 weeks late on her menstrual cycle but has had her tubes tied, unlikely to be but will check a test. Given the broad differential and location of the patient's discomfort will obtain pelvic ultrasound to evaluate for cyst or torsion but will also plan for CT to evaluate for appendicitis or diverticular disease TRAVEL OUTSIDE OF THE U.S. IN LAST 30 DAYS: No - Related Data Allergies/Adverse Reactions: cephalexin [From Keflex] Allergy (Verified 02/12/20 12:33) latex Allergy (Verified 02/12/20 12:33) Past Medical History - Social History Smoking Status: Unknown if Ever Smoked Family History: Reviewed & Not Pertinent - Past Medical History Cardiac Medical History: Denies: Hx Coronary Artery Disease, Hx Heart Attack, Hx Hypertension Pulmonary Medical History: Denies: Hx Asthma, Hx Bronchitis, Hx COPD, Hx Pneumonia Neurological Medical History: Denies: Hx Cerebrovascular Accident, Hx Seizures Renal/ Medical History: Denies: Hx Peritoneal Dialysis Musculoskeletal Medical History: Denies Hx Arthritis Past Surgical History: Reports: Hx Orthopedic Surgery - Right elbow - Immunizations Hx Diphtheria, Pertussis, Tetanus Vaccination: Yes Physical Exam - Vital signs Vitals: Temp Pulse Resp BP Pulse Ox 98.6 F 105 H 18 154/83 H 97 02/12/20 11:35 02/12/20 11:35 02/12/20 11:35 02/12/20 11:35 02/12/20 11:35 Course - Re-evaluation Re-evalutation: 02/12/20 15:59 Ultrasound transabdominal was able to show both ovaries, good blood flow, no torsion, 4 cm simple cyst on the left ovary. I discussed this at length with the patient. Will place her on pain medication, [facility] follow-up, return instructions - Vital Signs Vital signs: Temp Pulse Resp BP Pulse Ox 98.6 F 105 H 16 119/74 98 02/12/20 11:35 02/12/20 11:35 02/12/20 14:31 02/12/20 14:31 02/12/20 14:31 - Laboratory Result Diagrams: 02/12/20 12:20 02/12/20 12:20 Laboratory results interpreted by me: 02/12/20 02/12/20 02/12/20 12:20 12:20 12:29 Hgb 16.5 H Hct 47.1 H MCV 98 H MCH 34.4 H BUN 22 H Urine Blood SMALL H Discharge - Discharge Clinical Impression: Abdominal pain, right lower quadrant Condition: Stable Disposition: HOME, SELF-CARE Additional Instructions: It was noted on your imaging studies today that you have a 4 cm left ovarian cyst. You should follow this up closely with [facility] DIRECTOR for further evaluation and treatment. Take the pain medications as prescribed, no driving if taking narcotics for pain. If you have worsening or unrelenting or uncontrollable pain at home please return for reevaluation of symptoms. Prescriptions: Naproxen 500 mg PO BID PRN #14 tablet PRN Reason: Oxycodone HCl/Acetaminophen [Percocet 5-325 mg Tablet] 1 tab PO Q4H PRN #15 tab PRN Reason: Ondansetron [Zofran Odt 4 mg Tablet] 1 - 2 tab PO Q4H PRN #15 tab.rapdis PRN Reason: For Nausea/Vomiting Referrals: MARTIR FRANKLIN MD [ACTIVE STAFF] - Follow up as needed
[2020-02-12 12:39] LABS: ABSOLUTE BASOPHILS # (AUTO) 0.1 10^3/uL (0.0-0.2); ABSOLUTE EOSINOPHILS # (AUTO) 0.1 10^3/uL (0.0-0.6); ABSOLUTE LYMPHOCYTES (AUTO) 1.6 10^3/uL (0.5-4.7); ABSOLUTE MONOCYTES (AUTO) 0.5 10^3/uL (0.1-1.4); ABSOLUTE NEUT (AUTO) 5.3 10^3/uL (1.7-8.2); BASOPHILS % (AUTO) 0.7 % (0-2); EOSINOPHILS % (AUTO) 0.8 % (0-6); HEMATOCRIT 47.1 % (36.0-47.0); HEMOGLOBIN 16.5 g/dL (12.0-15.5); LYMPHOCYTES % (AUTO) 21.4 % (13-45); MEAN CORPUSCULAR HEMOGLOBIN 34.4 pg (27.0-33.4); MEAN CORPUSCULAR HGB CONC 35.2 g/dL (32.0-36.0); MEAN CORPUSCULAR VOLUME 98 fl (80-97); MONOCYTES % (AUTO) 6.7 % (3-13); PLATELET COUNT 226 10^3/uL (150-450); RED BLOOD COUNT 4.81 10^6/uL (3.72-5.28); RED CELL DISTRIBUTION WIDTH 13.4 % (11.5-14.0); SEGMENTED NEUTROPHILS % (AUTO) 70.4 % (42-78); TOTAL CELLS COUNTED % (AUTO) 100 %; WHITE BLOOD COUNT 7.5 10^3/uL (4.0-10.5)
[2020-02-12 12:56] LABS: APPEARANCE,URINE CLEAR; BILIRUBIN,URINE NEGATIVE (NEGATIVE); COLOR,URINE STRAW; GLUCOSE, URINE NEGATIVE (NEGATIVE); KETONES,URINE NEGATIVE (NEGATIVE); LEUKOCYTE ESTERASE,URINE NEGATIVE (NEGATIVE); NITRITE,URINE NEGATIVE (NEGATIVE); PROTEIN,URINE NEGATIVE (NEGATIVE); URINE SPECIFIC GRAVITY 1.005; UROBILINOGEN,URINE NEGATIVE mg/dL (<2.0)
[2020-02-12 13:01] LABS: ALBUMIN 4.1 g/dL (3.5-5.0); ALKALINE PHOSPHATASE 66 U/L (38-126); ANION GAP 5 (5-19); ASPARTATE AMINO TRANSFERASE 28 U/L (14-36); BILIRUBIN,TOTAL 0.3 mg/dL (0.2-1.3); BLOOD UREA NITROGEN 22 mg/dL (7-20); CALCIUM 8.8 mg/dL (8.4-10.2); CARBON DIOXIDE 26 mmol/L (22-30); CHLORIDE 107 mmol/L (98-107); GLUCOSE 86 mg/dL (75-110); POTASSIUM 4.6 mmol/L (3.6-5.0); TOTAL PROTEIN 6.6 g/dL (6.3-8.2)
--- NOTE | 2020-02-12 14:01 | RADIOLOGY REPORT (SQ) ---
EXAM DESCRIPTION: U/S NON OB PEL TV W/DOPPLER IMAGES COMPLETED DATE/TIME: 02/12/2020 11:42 am REASON FOR STUDY: right pelvic pain COMPARISON: None. TECHNIQUE: Dynamic and static grayscale images acquired of the pelvis via transvaginal approach and recorded on PACS. Additional selected color Doppler and spectral images recorded. LIMITATIONS: None. FINDINGS: UTERUS: Contour normal. No mass. ENDOMETRIAL STRIPE: No focal or generalized thickening. No masses. CERVIX: Cervical nabothian cysts are noted. Cervix has normal contour. No endocervical fluid or dakota ris. RIGHT OVARY AND DOPPLER: Not visualized. No adnexal mass. LEFT OVARY AND DOPPLER: Not visualized. No adnexal mass. FREE FLUID: None noted. OTHER: No other significant finding. MEASUREMENTS: UTERUS: 10.8 x 5.2 x 5.3 cm ENDOMETRIAL STRIPE: 13 mm RIGHT OVARY: Not visualized LEFT OVARY: Not visualized IMPRESSION: No sonographic abnormality of the uterus. The ovaries are not visualized. No adnexal m ass. TECHNICAL DOCUMENTATION: JOB ID: [id number] [employer]- All Rights Reserved Reading location - IP/workstation name: [email or web address]
--- NOTE | 2020-02-12 14:45 | RADIOLOGY REPORT (SQ) ---
EXAM DESCRIPTION: CT ABD/PELVIS WITH IV ONLY IMAGES COMPLETED DATE/TIME: 02/12/2020 2:28 pm REASON FOR STUDY: RLQ pain, eval for appy/diverticulitis COMPARISON: Pelvic ultrasound from same date. TECHNIQUE: CT scan of the abdomen and pelvis performed using helical scanning technique with dynamic intravenous contrast injection. No oral contrast. Images reviewed with lung, soft tissue, and bone windows. Reconstructed coronal and sagittal MPR images reviewed. Delayed images for evaluation of the urinary system also acquired. All images stored on PACS. All CT scanners at this facility use dose modulation, iterative reconstruction, and/or weight based d osing when appropriate to reduce radiation dose to as low as reasonably achievable (ALARA). [facility]: Dose Right [facility]: CareDose [facility]: Dose Right [facility]: Teradose 4D [facility]: Choister CONTRAST TYPE AND DOSE: contrast/concentration: Isovue 350.00 mg/ml; Total Contrast Delivered: 90.0 ml; Total Saline Delivered: 57.0 ml RENAL FUNCTION: GFR > 60. RADIATION DOSE: CT Rad equipment meets quality standard of care and radiation dose reduction techniq ues were employed. CTDIvol: 7.7 - 10.9 mGy. DLP: 985 mGy-cm.. LIMITATIONS: None. FINDINGS: LOWER CHEST: No significant findings. No nodules or infiltrates. LIVER: Normal size. No masses. No dilated ducts. SPLEEN: Normal size. No focal lesions. PANCREAS: No masses. No significant calcifications. No adjacent inflammation or peripancreatic fluid collections. Pancreatic duct not dilated. GALLBLADDER: No identified stones by CT criteria. No inflammatory changes to suggest cholecystitis. ADRENAL GLANDS: No significant masses or asymmetry. RIGHT KIDNEY AND URETER: No solid masses. No significant calcification. No hydronephrosis or hydroure ter. LEFT KIDNEY AND URETER: No solid masses. No significant calcification. No hydronephrosis or hydrouret er. AORTA AND VESSELS: No aneurysm. No dissection. Renal arteries, SMA, celiac without stenosis. RETROPERITONEUM: No retroperitoneal adenopathy, hemorrhage or masses. BOWEL AND PERITONEAL CAVITY: Moderate stool. No ascites or abnormal gas. APPENDIX: Normal. PELVIS: Ovoid 3.7 cm lesion adjacent to the uterine fundus is probably adnexal in origin. This has s ome dependent dense material in, likely a hemorrhagic cyst. This area was likely obscured by adjacen t bowel gas on ultrasound, ovaries were not seen. No pelvic free fluid or bladder pathology. ABDOMINAL WALL: No masses. No hernias. BONES: No significant or acute findings. OTHER: No other significant finding. IMPRESSION: 1. Suspect a hemorrhagic left ovarian cyst. This was not seen on recent ultrasound as the ovaries co uld not be visualized. If the patient's pain does not resolve in a reasonable time course, followup repeat ultrasound imaging by transabdominal and endovaginal technique recommended. 2. Stool retention. 3. Otherwise unremarkable abdominopelvic CT. TECHNICAL DOCUMENTATION: JOB ID: [id number] Quality ID # [id number]: Final reports with documentation of one or more dose reduction techniques (e.g., Au tomated exposure control, adjustment of the mA and/or kV according to patient size, use of iterative reconstruction technique) 2010 [employer]- All Rights Reserved Reading location - IP/workstation name: [email or web address]
--- NOTE | 2020-02-12 15:52 | RADIOLOGY REPORT (SQ) ---
EXAM DESCRIPTION: U/S NON OB PEL W/DOPPLER IMAGES COMPLETED DATE/TIME: 02/12/2020 3:40 pm REASON FOR STUDY: pelvic pain COMPARISON: Transvaginal study from earlier. CT study from earlier. FINDINGS: Transabdominal scanning shows the ovaries. Left ovarian cyst measuring almost 4 cm. No suspicious features. Appropriate Doppler detectable blo od flow. Right ovary visualized and looks normal with appropriate Doppler detectable blood flow. Other pelvic structures are described in earlier transvaginal study report. TECHNICAL DOCUMENTATION: JOB ID: [id number] Reading location - IP/workstation name: [email or web address] ADMINISTRATION [email or web address]
[2020-02-12 16:01] VITALS: BP 118/73
[2020-02-12] MEDS ORDERED: OXYCODONE-ACETAMINOPHEN 5-325 MG TABLET PO ONE (16:05)
== END 2020-02-12 16:17 | disposition home or self-care (01) ==
LOC: ER 11:32
DX: R10.31 Right lower quadrant pain (principal); Z91.040 Latex allergy status
CPT/HCPCS: 96376; 99284; 96361; 96374; 96375; 36415; 83690; 85025; 81025; 80053; 81001; 76856; 76830; 93976; 74177; J2270; J2405; J7030

== ENCOUNTER → 2020-05-09 | Outpatient (CLI) | payer SELFPAY ==
[2020-05-09 15:42] VITALS: BP 119/51
--- NOTE | 2020-05-09 15:42 | ER RDC ASSESSMENT REPORT ---
Intake - In the Last 14 days Have you traveled outside [place]?: No Have you been in close contact with someone CONFIRMED: No Worked in Healthcare?: Yes - Symptoms Subjective Fever(Lynn feverish): No Chills: Yes Muscule Aches: Yes Runny Nose: Yes Sore Throat: Yes Cough (New or worsening chronic cough): Yes Shortness of breath: No Nausea or Vomiting: No Headache: Yes Abdominal Pain: No Diarrhea(3 or more loose stools in last 24 hours): No - Do you have any of the following Chronic lung disease: Asthma or emphysema or COPD: No Cystic Fibrosis: No Diabetes: No High Blood Pressure: No Cardiovascular Disease: No Chronic Kidney Disease: No Chronic Liver Disease: No Chronic blood disorder like Sickle Cell Disease: No Weak immune system due to disease or medication: No Neurologic condition that limits movement: No Developmental delay - Moderate to Severe: No Recent (within past 2 weeks) or current : No Morbid Obesity (>100 pounds over ideal weight): No - Objective Temperature: 98.8 F Pulse Rate: 86 Respiratory Rate: 18 Blood Pressure: 119/51 O2 Sat by Pulse Oximetry: 96 Objective: Given above, testing performed: flu, strep, covid Disposition: Home; Selfcare General - General Chief Complaint: Flu Symptoms Time Seen by Provider: 05/09/20 14:50 Mode of Arrival: Ambulatory - [facility] Notes: 4-year-old female presents to [facility] clinic for COVID-19 testing. Patient is employed in healthcare in the . Patient does not know of any confirmed COVID-19 case that she has been exposed to. Patient has no significant medical history. She is complaining of moderate chills, myalgia, rhinorrhea, sore throat, dry cough, and headache, onset 04/25/2020. No exacerbating factors. Is been taking [id number] Tylenol and Advil to help with the headache. Patient denies any fever, shortness of breath, nausea or vomiting, abdominal pain or diarrhea. - Related Data Allergies/Adverse Reactions: cephalexin [From Keflex] Allergy (Verified 02/12/20 12:33) latex Allergy (Verified 02/12/20 12:33) Past Medical History - General Information source: Patient - Social History Smoking Status: Current Every Day Smoker Family History: Reviewed & Not Pertinent - Past Medical History Cardiac Medical History: Reports: None Denies: Hx Coronary Artery Disease, Hx Heart Attack, Hx Hypertension Pulmonary Medical History: Reports: None Denies: Hx Asthma, Hx Bronchitis, Hx COPD, Hx Pneumonia EENT Medical History: Reports: None Neurological Medical History: Reports: None. Denies: Hx Cerebrovascular Accident, Hx Seizures Endocrine Medical History: Reports: None Renal/ Medical History: Reports: None. Denies: Hx Peritoneal Dialysis Malignancy Medical History: Reports: None GI Medical History: Reports: None Musculoskeletal Medical History: Reports None, Denies Hx Arthritis Skin Medical History: Reports None Psychiatric Medical History: Reports: None Traumatic Medical History: Reports: None Infectious Medical History: Reports: None Past Surgical History: Reports: Hx Orthopedic Surgery - Right elbow, Hx Tubal Ligation Physical Exam - General General appearance: Appears well, Alert In distress: None Notes: PHYSICAL EXAMINATION: GENERAL: Well-appearing and in no acute distress. HEAD: Atraumatic, normocephalic. EYES: sclera anicteric, conjunctiva are normal. ENT: nares patent. Moist mucous membranes. NECK: Normal range of motion, supple without lymphadenopathy LUNGS: CTAB and equal. No wheezes rales or rhonchi. HEART: Regular rate and rhythm without murmurs ABDOMEN: Soft, nontender, normal bowel sounds, no guarding. EXTREMITIES: Normal range of motion, no pitting edema. No cyanosis. NEUROLOGICAL: Cranial nerves grossly intact. Normal speech. PSYCH: Normal mood, normal affect. SKIN: Warm, Dry, normal turgor, no rashes or lesions noted Patient Education/Counseling Counseling/Education: Patient presents with upper respiratory symptoms worrisome for possible Covid 19. Patient does not have emergency worrying symptoms such as difficulty breathing, shortness of breath, chest pain, pressure, confusion or cyanosis. Patient appears suitable for discharge as vital signs are stable and patient is nontoxic in appearance. Good return precautions have been discussed with patient, patient verbalized understanding and is agreeable with discharge plan of care at this time. Guidance for worsening S/SX: As a person under investigation for Covid 19, the [facility] of Health and Human Services, division of public health advises you to adhere to the following guidance until your test results are reported to you. If your test result is positive, you will receive additional information from your provider and your local health department at that time. Remain at home until you are cleared by the health provider or public health authorities. Keep a log of visitors to your home, notify any visitors to your home of your isolation status. If you plan to move to a new address or leave the county, notify the local health department in your County. Call your doctor or seek care if you have an urgent medical need. Before seeking medical care, call ahead to get instructions from the provider before arriving at the medical office clinic or hospital. Notify them that you are being tested for the virus that causes Covid 19 so that arrangements can be made, as necessary, to prevent transmission to others in the healthcare setting. Next, notify the local health department in your county. If a medical emergency arises and you need to call 911, inform the first responders that you are being tested for the virus that causes Covid 19. Next, notify the local health department in your county. RDC Discharge - Discharge Clinical Impression: Upper respiratory infection Qualifiers: URI type: unspecified URI Qualified Code(s): J06.9 - Acute upper respiratory in fection, unspecified Condition: Good Disposition: Home; Selfcare
[2020-05-09 16:56] LABS: A TYPE INFLUENZA AG NEGATIVE (NEGATIVE)
[2020-05-09 16:57] LABS: B INFLUENZA AG NEGATIVE (NEGATIVE)
== END ==
LOC: RDC 14:14
PROVIDERS: ATTEND Registered Nurse
DX: Z20.828 Contact with and (suspected) exposure to other viral communicable diseases (principal); R05 Cough; J02.9 Acute pharyngitis, unspecified; J34.89 Other specified disorders of nose and nasal sinuses; M79.10 Myalgia, unspecified site; R51 Headache; Z88.1 Allergy status to other antibiotic agents; Z91.040 Latex allergy status; F17.200 Nicotine dependence, unspecified, uncomplicated
CPT/HCPCS: 87070; 87880; 87635; 87804; 99201; 99211; C9803

== ENCOUNTER 2020-10-15 17:32 | Emergency (ER) | payer MEDICAID ==
--- NOTE | 2020-10-15 17:53 | ER Document Report ---
ED Medical Screen (RME) - General Chief Complaint: Vaginal Bleeding Stated Complaint: HEAVY VAGINAL BLEEDING Time Seen by Provider: 10/15/20 17:47 Mode of Arrival: Ambulatory Information source: Patient Notes: 44-year-old female presents to ED for complaint of severe vaginal bleeding. She states she had her menstrual cycle started on September 23. She stated went like normal, treated off like normal and then came back with a vengeance. She states she has gone through multiple boxes of pads and tampons since then. She states today she stood up for a while and was gushing blood. She states she went over to [facility] and they told her this was well beyond them. 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 She states she smokes about a third a pack a day drinks maybe 2 or 3 times a year and does not use any illicit drugs. I have greeted and performed a rapid initial assessment of this patient. A comprehensive ED assessment and evaluation of the patient, analysis of test results and completion of medical decision making process will be conducted by an additional ED providers. TRAVEL OUTSIDE OF THE [place].S[place] IN LAST 30 DAYS: No - Related Data Allergies/Adverse Reactions: cephalexin [From Keflex] Allergy (Verified 10/15/20 17:47) latex Allergy (Verified 10/15/20 17:47) Home Medications: ibuprofen and tylenol Past Medical History - Social History Chew tobacco use (# tins/day): No Frequency of alcohol use: Rare Drug Abuse: None - Past Medical History Cardiac Medical History: Denies: Hx Coronary Artery Disease, Hx Heart Attack, Hx Hypertension Pulmonary Medical History: Denies: Hx Asthma, Hx Bronchitis, Hx COPD, Hx Pneumonia Neurological Medical History: Denies: Hx Cerebrovascular Accident, Hx Seizures Renal/ Medical History: Denies: Hx Peritoneal Dialysis Musculoskeltal Medical History: Denies Hx Arthritis Past Surgical History: Reports: Hx Orthopedic Surgery - Right elbow, Hx Tubal Ligation - Immunizations Hx Diphtheria, Pertussis, Tetanus Vaccination: Yes Physical Exam - Vital signs Vitals: Temp Pulse Resp BP Pulse Ox 98.6 F 80 16 129/69 H 98 10/15/20 17:49 10/15/20 17:49 10/15/20 17:49 10/15/20 17:49 10/15/20 17:49 Course - Vital Signs Vital signs: Temp Pulse Resp BP Pulse Ox 98.6 F 80 16 129/69 H 98 10/15/20 17:49 10/15/20 17:49 10/15/20 17:49 10/15/20 17:49 10/15/20 17:49
[2020-10-15 19:04] LABS: ABSOLUTE EOSINOPHILS # (AUTO) 0.1 10^3/uL (0.0-0.6); ABSOLUTE LYMPHOCYTES (AUTO) 2.5 10^3/uL (0.5-4.7); ABSOLUTE MONOCYTES (AUTO) 0.6 10^3/uL (0.1-1.4); BASOPHILS % (AUTO) 0.6 % (0-2); HEMATOCRIT 45.4 % (36.0-47.0); HEMOGLOBIN 15.4 g/dL (12.0-15.5); LYMPHOCYTES % (AUTO) 29.9 % (13-45); MEAN CORPUSCULAR HEMOGLOBIN 33.2 pg (27.0-33.4); MEAN CORPUSCULAR HGB CONC 33.9 g/dL (32.0-36.0); MEAN CORPUSCULAR VOLUME 98 fl (80-97); MONOCYTES % (AUTO) 7.7 % (3-13); PLATELET COUNT 232 10^3/uL (150-450); RED BLOOD COUNT 4.64 10^6/uL (3.72-5.28); RED CELL DISTRIBUTION WIDTH 13.6 % (11.5-14.0); SEGMENTED NEUTROPHILS % (AUTO) 60.8 % (42-78); TOTAL CELLS COUNTED % (AUTO) 100 %; WHITE BLOOD COUNT 8.2 10^3/uL (4.0-10.5)
[2020-10-15 19:11] LABS: APPEARANCE,URINE SLIGHTLY-CLOUDY; BILIRUBIN,URINE NEGATIVE (NEGATIVE); COLOR,URINE YELLOW; GLUCOSE, URINE NEGATIVE (NEGATIVE); KETONES,URINE NEGATIVE (NEGATIVE); LEUKOCYTE ESTERASE,URINE TRACE (NEGATIVE); NITRITE,URINE NEGATIVE (NEGATIVE); PROTEIN,URINE NEGATIVE (NEGATIVE); URINE SPECIFIC GRAVITY 1.019; UROBILINOGEN,URINE NEGATIVE mg/dL (<2.0)
[2020-10-15 19:25] LABS: ALBUMIN 4.1 g/dL (3.5-5.0); ALKALINE PHOSPHATASE 72 U/L (38-126); ANION GAP 6 (5-19); ASPARTATE AMINO TRANSFERASE 22 U/L (14-36); BILIRUBIN,DIRECT 0.1 mg/dL (0.0-0.4); BILIRUBIN,TOTAL 0.4 mg/dL (0.2-1.3); BLOOD UREA NITROGEN 14 mg/dL (7-20); CALCIUM 9.1 mg/dL (8.4-10.2); CARBON DIOXIDE 28 mmol/L (22-30); CHLORIDE 104 mmol/L (98-107); GLUCOSE 86 mg/dL (75-110); POTASSIUM 4.6 mmol/L (3.6-5.0); TOTAL PROTEIN 6.7 g/dL (6.3-8.2)
--- NOTE | 2020-10-15 19:35 | RADIOLOGY REPORT (SQ) ---
EXAM DESCRIPTION: U/S NON-OB PELVIS TV W/O DOP IMAGES COMPLETED DATE/TIME: 10/15/2020 7:04 pm REASON FOR STUDY: Severe vaginal bleeding, pelvic cramping COMPARISON: None. TECHNIQUE: Dynamic and static grayscale images acquired of the pelvis via transvaginal approach and recorded on PACS. Additional selected color Doppler and spectral images recorded. LIMITATIONS: None. FINDINGS: UTERUS: A 1.0 cm uterine fibroid is suggested. ENDOMETRIAL STRIPE: Diffusely echogenic thickened endometrium with several anechoic areas and blood flow. Considerations for this finding includes polyps, endometrial hyperplasia, as well as other und erlying pathology. CERVIX: The cervix measures 3.0 cm in length. Large Nabothian cysts. RIGHT OVARY AND DOPPLER: Not visualized due to overlying bowel gas. LEFT OVARY AND DOPPLER: Not visualized due to overlying bowel gas. FREE FLUID: None noted. OTHER: No other significant finding. MEASUREMENTS: UTERUS: 12 x 6 x 5.0 cm ENDOMETRIAL STRIPE: 2.3 cm IMPRESSION: 1. Diffuse echogenic thickening of the endometrial cavity was several anechoic areas an d blood flow identified. Considerations for these findings include endometrial polyps, hyperplasia, as well as other underlying pathology. [employer]ER consult suggested. 2. Small uterine fibroid. 3. Neither ovary is identified sonographically due to overlying bowel gas. 4. Multiple large Nabothian cysts in the cervix region. TECHNICAL DOCUMENTATION: JOB ID: [id number] [employer]- All Rights Reserved Rev Reading location - IP/workstation name: [email or web address]
[2020-10-15] MEDS ORDERED: MEDROXYPROGESTERONE ACET 10 MG TABLET PO ONE (20:56)
--- NOTE | 2020-10-15 21:15 | ER Document Report ---
ED General - General Chief Complaint: Vaginal Bleeding Stated Complaint: HEAVY VAGINAL BLEEDING Time Seen by Provider: 10/15/20 17:47 Primary Care Provider: ZAMZAM LIRA MD [ACTIVE PROVISIONAL STAFF] - Follow up in 3-5 days Mode of Arrival: Ambulatory TRAVEL OUTSIDE OF THE [place] IN LAST 30 DAYS: No - HPI Notes: Patient is a 44-year-old female with no significant past medical history who presents with vaginal bleeding. Patient states she began having vaginal bleeding a few days after Thanksgiving so it has been present for about 1 month. It has continued. She states that she thought it was getting better on day 5 of her period. But it began to be much heavier on day 8 and has lasted since then. 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 She sometimes passes clots. She has been going through a tampon and a pad every 2 hours. She has mild abdominal cramping associated with it. Patient is not yet menopausal. Mention slight lightheadedness. No chest pain or shortness of breath. No urinary symptoms. - Related Data Allergies/Adverse Reactions: cephalexin [From Keflex] Allergy (Verified 10/15/20 17:47) latex Allergy (Verified 10/15/20 17:47) Home Medications: ibuprofen and tylenol Past Medical History - General Information source: Patient - Social History Smoking Status: Current Every Day Smoker Chew tobacco use (# tins/day): No Frequency of alcohol use: Rare Drug Abuse: None Family History: Reviewed & Not Pertinent Patient has homicidal ideation: No - Past Medical History Cardiac Medical History: Denies: Hx Coronary Artery Disease, Hx Heart Attack, Hx Hypertension Pulmonary Medical History: Denies: Hx Asthma, Hx Bronchitis, Hx COPD, Hx Pneumonia Neurological Medical History: Denies: Hx Cerebrovascular Accident, Hx Seizures Renal/ Medical History: Denies: Hx Peritoneal Dialysis Musculoskeletal Medical History: Denies Hx Arthritis Past Surgical History: Reports: Hx Orthopedic Surgery - Right elbow, Hx Tubal Ligation - Immunizations Hx Diphtheria, Pertussis, Tetanus Vaccination: Yes Review of Systems - Review of Systems Notes: CONSTITUTIONAL: No fever, fatigue or weight loss. SKIN: No rash. CARDIOVASCULAR: No chest pain or edema. RESPIRATORY: No cough, shortness of breath, congestion, or wheezing. GASTROINTESTINAL: No abdominal pain, nausea, vomiting, bloody stools or diarrhea. GENITOURINARY: No dysuria. MUSCULOSKELETAL: No joint pain or swelling. LYMPHATIC: No swollen glands. NEUROLOGIC: No seizures. No headache, focal weakness or sensory changes. HEMATOLOGIC: Positive for vaginal bleeding. PSYCHIATRIC: No depression or anxiety. Physical Exam - Vital signs Vitals: Temp Pulse Resp BP Pulse Ox 98.6 F 80 16 129/69 H 98 10/15/20 17:49 10/15/20 17:49 10/15/20 17:49 10/15/20 17:49 10/15/20 17:49 - General General appearance: Appears well Notes: VITAL SIGNS: Within normal limits. GENERAL: No acute distress, non-toxic appearance. HEAD: Normal with no signs of head trauma. EYES: Conjunctiva normal, no discharge. EARS: Hearing grossly intact. NECK: Normal range of motion, no tenderness, supple, no lymphadenopathy, No adenopathy, no JVD. CHEST: Clear breath sounds bilaterally. No wheezes, rales, or rhonchi. CARDIAC: Regular rate and rhythm. S1 and S2, without murmurs, gallops, or rubs. VASCULAR: No Edema. ABDOMEN: Normal and soft with no tenderness, no masses or pulsatile masses. Minimal discomfort to lower abdominal palpation. MUSCULOSKELETAL: Good range of motion of all major joints. Extremities without clubbing, cyanosis or edema. NEUROLOGICAL: Alert and oriented x 3. No focal sensory or strength deficits. Speech normal. Follows commands appropriately. PSYCHIATRIC: Normal Affect, judgement and mood. SKIN: Normal appearance with no rashes or lesions. Course - Re-evaluation Re-evalutation: 10/15/20 21:56 Patient has endometrial thickening. Her hemoglobin is normal. I discussed with OB, Dr. Lira, who recommended she be started on Provera daily as she is a smoker. Patient was told to call OB first thing in the morning. She will need an endometrial biopsy per OB. Patient was given strict return precautions. She states she is not currently on any control. She has never had any blood clots. She verbalized understanding of all instructions and stated her questions were all answered. 10/16/20 13:14 - Vital Signs Vital signs: Temp Pulse Resp BP Pulse Ox 98 F 75 16 112/63 99 10/15/20 21:45 10/15/20 21:45 10/15/20 21:45 10/15/20 21:45 10/15/20 21:45 - Laboratory Results Result Diagrams: 10/15/20 18:38 10/15/20 18:38 Laboratory Results Interpreted: 10/15/20 10/15/20 18:38 18:38 MCV 98 H Urine Blood LARGE H Ur Leukocyte Esterase TRACE H Critical Laboratory Results Reviewed: No Critical Results - Radiology Results Critical Radiology Results Reviewed: No Critical Results Discharge - Discharge Clinical Impression: Vaginal bleeding Condition: Stable Disposition: HOME, SELF-CARE Instructions: Vaginal Bleeding ([facility]) Additional Instructions: Your hemoglobin is normal today. Your ultrasound shows endometrial thickening. Please call OB first thing tomorrow morning for an appointment. Take your medication as prescribed. Please return immediately for any worsening symptoms, lightheadedness, dizziness. Prescriptions: Medroxyprogesterone Acet [Provera 10 Mg Tablet] 10 mg PO DAILY 7 Days #7 tablet Forms: Return to Work Referrals: ZAMZAM LIRA MD [ACTIVE PROVISIONAL STAFF] - Follow up in 3-5 days
[2020-10-15 21:37] VITALS: BP 112/63
== END 2020-10-15 21:45 | disposition home or self-care (01) ==
LOC: ER 17:32
DX: N93.8 Other specified abnormal uterine and vaginal bleeding (principal); R93.89 Abnormal findings on diagnostic imaging of other specified body structures; F17.200 Nicotine dependence, unspecified, uncomplicated; Z91.040 Latex allergy status
CPT/HCPCS: 99284; 86900; 86901; 36415; 86850; 83690; 84703; 85025; 80053; 81001; 76830; J3490